=== PATIENT | male | born 1945 | race Caucasian/White ===

== ENCOUNTER → 2017-01-19 | Day surgery (SDC) | payer MEDICARE ==
[~2017-01-19] MED LIST: ACETAMINOPHEN 1000 MG/100 ML 100 ML IV ONE; ACETAMINOPHEN/HYDROcodone 325 MG/5 MG TAB ONE; BUPIVACAINE HCL PF 0.25% 30 ML VIAL INFIL ONE; LACTATED RINGER'S 1000 ML INJ 1,000 ML ONE; LIDOCAINE 2%/EPINEPHrine PF 1:200,000 20ML SDV ONE; MEPERIDINE HCL 25 MG/ML VIAL ONE; MIDAZOLAM HCL 2 MG/2 ML VIAL ONE; ONDANSETRON HCL 4 MG/2 ML VIAL IV PUSH ONE; PROPOFOL 200 MG/20 ML AMP IV ONE; ceFAZolin INJ 1,000 MG VIAL ONE
--- NOTE | 2017-01-19 10:49 | TN ---
cc: HUBER COMBS D.O.,KENROY Steiner M.D. DATE OF SURGERY: 01/19/2017 PREOPERATIVE DIAGNOSIS 1. Umbilical hernia. 2. Abdominal mass, possible ventral hernia less than a centimeter. POSTOPERATIVE DIAGNOSIS 1. Umbilical hernia. 2. Lipomatous structure in the ventral mid abdomen, 4 cm above the umbilicus. PROCEDURE 1. Repair of umbilical hernia measuring less than 1 cm, primary repair. 2. Removal of abdominal wall mass through a separate incision, 4 cm above the umbilicus; appears to be a lipoma. ANESTHESIA General. SURGEON Dr. Dye. INDICATION This is a 71-year-old gentleman who had a symptomatic umbilical hernia and a symptomatic mass that was originally thought to be a ventral hernia, real small, but it was found to be actually a lipomatous structure. DETAILS OF PROCEDURE The patient was taken to the operating room and placed in the supine position. After anesthesia a timeout is done, antibiotics given. He had been previously prepped with Betadine. We first make an a curvilinear incision at the umbilicus, dissect down through the stalk of the umbilicus identifying the hernia and the hernia sac which is easily reduced. The fascia is very strong and the defect is just under a centimeter in size. We just simply reapproximate this in a horizontal fashion using interrupted 0 Ethibond sutures. The umbilicus is then tacked down to the fascia with a 2-0 Vicryl and skin is closed with 4-0 Vicryl. We then direct our attention above the umbilicus where a linear incision is made in a vertical fashion overlying the area in question and dissect down to what appears to be a lipomatous structure which is somewhat ischemic. This is enucleated out. He has no fascial defect in this area. We then remove the remaining adipose tissue; this is passed off the field. We close the deep layer with 3-0 Vicryl. The skin is closed with 4-0 Vicryl. Steri-Strips are applied. Sterile bandage is applied. The patient tolerated the procedure well and had no immediate post-op complications. MD SANDIE Martin/DONOVAN /10:31 AM /10:36 AM
== END | disposition home or self-care (01) ==
LOC: ESDC 08:05
PROVIDERS: ATTEND Surgery
DX: K42.9 Umbilical hernia without obstruction or gangrene (principal); D17.1 Benign lipomatous neoplasm of skin and subcutaneous tissue of trunk
CPT/HCPCS: 00700; 00750; 22903; 49585; 88305; J0131; J0690; J2175; J2250; J2405; J3010; J7120; 88304